=== PATIENT | male | born 1960 ===

== ENCOUNTER → 2018-06-21 | Outpatient (REF) ==
--- NOTE | 2018-06-21 13:19 | REP ---
LUMBAR SPINE, THREE VIEWS: HISTORY: Degenerative disc disease. There is no acute fracture or subluxation. The lumbar intervertebral discs are decreased in height consistent with disc degeneration. Osteophytes are present at L1-5. There is loss of the normal lordotic curve. IMPRESSION: Degenerative change as described above. Unreviewed
--- NOTE | 2018-06-21 13:21 | REP ---
RIGHT SHOULDER, THREE VIEWS: HISTORY: Degenerative joint disease. There is no acute fracture or dislocation. There is moderate narrowing of the acromioclavicular joint. The glenohumeral joint is normal in appearance. IMPRESSION: Degenerative change as described above. Electronically Signed by Santosh Olguin MD 06/21/2018 01:21 P
== END ==
LOC: M SMT 12:19
PROVIDERS: ATTEND Internal Medicine
DX: M19.111 Post-traumatic osteoarthritis, right shoulder (principal); M25.78 Osteophyte, vertebrae